=== PATIENT | female | born 1970 | race Two or more races ===

== ENCOUNTER → 2018-07-03 | Outpatient (CLI) | payer OTHER ==
[2018-07-03 10:37] LABS: HEMATOCRIT 38.6 % (36.0-47.0); HEMOGLOBIN 12.5 g/dl (12.0-15.5); MEAN CORPUSCULAR HEMOGLOBIN 28.7 pg (27.0-33.0); MEAN CORPUSCULAR HGB CONC 32.4 g/dl (32.0-36.5); MEAN CORPUSCULAR VOLUME 88.5 fl (80.0-96.0); PLATELET COUNT, AUTOMATED 371 10^3/uL (150-450); RED BLOOD COUNT 4.36 10^6/uL (4.00-5.40); RED CELL DISTRIBUTION WIDTH 15.2 % (11.5-14.5); WHITE BLOOD COUNT 6.6 10^3/uL (4.0-10.0)
[2018-07-03 11:21] LABS: ESTIMATED AVERAGE GLUCOSE 126 MG/DL (60-110)
[2018-07-03 11:33] LABS: ALBUMIN 3.6 GM/DL (3.2-5.2); ALBUMIN/GLOBULIN RATIO 1.06 (1.00-1.93); ALKALINE PHOSPHATASE 79 U/L (45-117); ALT/SGPT 19 U/L (12-78); ANION GAP 6 MEQ/L (8-16); AST/SGOT 13 U/L (7-37); BILIRUBIN,TOTAL 0.4 MG/DL (0.2-1.0); BLOOD UREA NITROGEN 13 MG/DL (7-18); CARBON DIOXIDE LEVEL 28 MEQ/L (21-32); CHLORIDE LEVEL 103 MEQ/L (98-107); CHOLESTEROL LEVEL 214 MG/DL (<200); CHOLESTEROL RISK RATIO 5.631 (<5); CREATININE FOR GFR 0.72 MG/DL (0.55-1.30); GLOMERULAR FILTRATION RATE > 60.0 (>58); GLUCOSE, FASTING 97 MG/DL (70-100); HDL CHOLESTEROL 38 MG/DL (>40); LDL CHOLESTEROL 143 MG/DL (<100); NON-HDL-C 176 MG/DL; POTASSIUM SERUM 4.3 MEQ/L (3.5-5.1); SODIUM LEVEL 137 MEQ/L (136-145); THYROID STIMULATING HORMONE 0.973 uIU/ML (0.358-3.740); TOTAL 25(OH) VITAMIN D 11.5 NG/ML (30.0-100.0); TRIGLYCERIDES LEVEL 165 MG/DL (<150)
== END ==
LOC: M LAB 09:01
DX: R53.83 Other fatigue (principal); I10 Essential (primary) hypertension
CPT/HCPCS: 71046

== ENCOUNTER → 2018-07-04 | Outpatient (CLI) | payer OTHER | LOC: M RAD 14:53 | DX: Z12.31 Encounter for screening mammogram for malignant neoplasm of breast (principal) | CPT/HCPCS: 77067 ==

== ENCOUNTER → 2019-10-07 | Outpatient (CLI) | payer OTHER ==
[2019-10-07 09:14] LABS: HEMATOCRIT 40.6 % (36.0-47.0); HEMOGLOBIN 12.7 g/dl (12.0-15.5); MEAN CORPUSCULAR HEMOGLOBIN 28.3 pg (27.0-33.0); MEAN CORPUSCULAR HGB CONC 31.3 g/dl (32.0-36.5); MEAN CORPUSCULAR VOLUME 90.4 fl (80.0-96.0); PLATELET COUNT, AUTOMATED 347 10^3/uL (150-450); RED BLOOD COUNT 4.49 10^6/uL (4.00-5.40); WHITE BLOOD COUNT 7.4 10^3/uL (4.0-10.0)
[2019-10-07 09:40] LABS: HEMOGLOBIN A1c 5.7 %
[2019-10-07 09:50] LABS: ALBUMIN 3.6 GM/DL (3.2-5.2); ALT/SGPT 16 U/L (12-78); BILIRUBIN,TOTAL 0.2 MG/DL (0.2-1.0); BLOOD UREA NITROGEN 10 MG/DL (7-18); CALCIUM LEVEL 8.6 MG/DL (8.5-10.1); CARBON DIOXIDE LEVEL 29 MEQ/L (21-32); CHLORIDE LEVEL 105 MEQ/L (98-107); CHOLESTEROL LEVEL 218 MG/DL (<200); CHOLESTEROL RISK RATIO 4.448 (<5); CREATININE FOR GFR 0.84 MG/DL (0.55-1.30); GLOMERULAR FILTRATION RATE > 60.0 (>58); GLUCOSE, FASTING 96 MG/DL (70-100); HDL CHOLESTEROL 49 MG/DL (>40); LDL CHOLESTEROL 142 MG/DL (<100); NON-HDL-C 169 MG/DL; POTASSIUM SERUM 4.5 MEQ/L (3.5-5.1); SODIUM LEVEL 140 MEQ/L (136-145); TRIGLYCERIDES LEVEL 137 MG/DL (<150)
[2019-10-07 10:33] LABS: TOTAL 25(OH) VITAMIN D 56.5 NG/ML (30.0-100.0)
== END ==
LOC: M LAB 08:30
PROVIDERS: ATTEND Family Medicine
DX: I10 Essential (primary) hypertension (principal); R53.83 Other fatigue

== ENCOUNTER → 2020-10-16 | Outpatient (CLI) | payer OTHER ==
[2020-10-16 10:28] LABS: HEMATOCRIT 42.5 % (36.0-47.0); HEMOGLOBIN 13.3 g/dl (12.0-15.5); MEAN CORPUSCULAR HEMOGLOBIN 28.1 pg (27.0-33.0); MEAN CORPUSCULAR HGB CONC 31.3 g/dl (32.0-36.5); MEAN CORPUSCULAR VOLUME 89.7 fl (80.0-96.0); PLATELET COUNT, AUTOMATED 406 10^3/uL (150-450); RED BLOOD COUNT 4.74 10^6/uL (4.00-5.40); WHITE BLOOD COUNT 9.5 10^3/uL (4.0-10.0)
[2020-10-16 10:37] LABS: HEMOGLOBIN A1c 6.1 %
[2020-10-16 10:57] LABS: ALBUMIN 3.9 GM/DL (3.2-5.2); BILIRUBIN,TOTAL 0.5 MG/DL (0.2-1.0); CALCIUM LEVEL 9.3 MG/DL (8.5-10.1); CHOLESTEROL RISK RATIO 5.434 (<5); CREATININE FOR GFR 1.09 MG/DL (0.55-1.30); GLOMERULAR FILTRATION RATE 56.8 (>58); PERCENT SATURATION 27.9 % (13.2-45.0); POTASSIUM SERUM 4.2 MEQ/L (3.5-5.1); THYROID STIMULATING HORMONE 2.11 uIU/ML (0.358-3.740); TOTAL PROTEIN 7.7 GM/DL (6.4-8.2)
[2020-10-17 11:02] LABS: TOTAL 25(OH) VITAMIN D 72.1 NG/ML (30.0-100.0)
== END ==
LOC: M LAB 09:48
PROVIDERS: ATTEND Family Medicine
DX: I10 Essential (primary) hypertension (principal); E11.9 Type 2 diabetes mellitus without complications; R53.83 Other fatigue; E03.9 Hypothyroidism, unspecified

== ENCOUNTER → 2021-02-23 | Outpatient (CLI) | payer OTHER ==
--- NOTE | 2021-02-23 11:46 | REP ---
INDICATION: LLQ MASS *LABS 2ND* COMPARISON: None. TECHNIQUE: Transabdominal pelvic ultrasound followed by transvaginal examination for better evaluation of the endometrium and adnexa. FINDINGS: Examination is limited due to body habitus and associated technical factors. Bladder is unremarkable and measures 6.7 x 5.0 x 5.4 cm. Heterogeneous uterus measures 8.8 x 4.6 x 5.2 cm. The endometrial complex is not discernible. No obvious focal uterine abnormality is identified. Bilateral ovaries are not visualized. No pelvic fluid or adnexal mass lesion noted. IMPRESSION: Limited examination. Ovaries not visualized. No obvious abnormality. <Electronically signed by Julian Mueller > 02/23/21 [id number]
[2021-02-23 12:00] LABS: HEMATOCRIT 36.7 % (36.0-47.0); MEAN CORPUSCULAR HGB CONC 32.7 g/dl (32.0-36.5); MEAN CORPUSCULAR VOLUME 88.6 fl (80.0-96.0); PLATELET COUNT, AUTOMATED 338 10^3/uL (150-450); RED BLOOD COUNT 4.14 10^6/uL (4.00-5.40)
[2021-02-23 12:20] LABS: HEMOGLOBIN A1c 6.2 %
[2021-02-23 12:36] LABS: ALBUMIN 3.4 GM/DL (3.2-5.2); ALT/SGPT 22 U/L (12-78); BILIRUBIN,TOTAL 0.3 MG/DL (0.2-1.0); BLOOD UREA NITROGEN 14 MG/DL (7-18); CARBON DIOXIDE LEVEL 29 MEQ/L (21-32); CHLORIDE LEVEL 99 MEQ/L (98-107); CHOLESTEROL LEVEL 198 MG/DL (<200); CREATININE FOR GFR 0.88 MG/DL (0.55-1.30); GLOMERULAR FILTRATION RATE > 60.0 (>58); GLUCOSE, FASTING 108 MG/DL (70-100); HDL CHOLESTEROL 44 MG/DL (>40); LDL CHOLESTEROL 105 MG/DL (<100); NON-HDL-C 154 MG/DL; POTASSIUM SERUM 3.9 MEQ/L (3.5-5.1); SODIUM LEVEL 136 MEQ/L (136-145); THYROID STIMULATING HORMONE < 0.005 uIU/ML (0.358-3.740); TOTAL PROTEIN 6.8 GM/DL (6.4-8.2); TRIGLYCERIDES LEVEL 244 MG/DL (<150)
== END ==
LOC: M RAD 10:47
PROVIDERS: ATTEND Family Medicine
DX: R19.04 Left lower quadrant abdominal swelling, mass and lump (principal)

== ENCOUNTER → 2021-06-12 | Outpatient (CLI) | payer OTHER ==
--- NOTE | 2021-06-12 19:59 | REP ---
INDICATION: COPD COMPARISON: 07/03/2018 TECHNIQUE: PA and lateral. FINDINGS: The mediastinum and cardiac silhouette are normal. The lung tarango are clear and without acute consolidation, effusion, or pneumothorax. The skeletal structures are intact and normal. IMPRESSION: No acute cardiopulmonary process. <Electronically signed by Julian Mueller > 06/12/211954
== END ==
LOC: M RAD 14:34
PROVIDERS: ATTEND Family Medicine
DX: J44.9 Chronic obstructive pulmonary disease, unspecified (principal)

== ENCOUNTER → 2021-06-27 | Outpatient (CLI) | payer OTHER ==
--- NOTE | 2021-06-27 15:17 | REP ---
INDICATION: PAIN/SWELLING RT CALF. COMPARISON: None. TECHNIQUE: Multiple ultrasonographic images of the deep venous structures of the right lower extremity were obtained from the inguinal ligament to the ankle. Venous compression techniques, color doppler imaging, and augmentation techniques were also obtained where appropriate. As per the ACR guidelines the anterior tibial vein can not be effectively evaluated. Only compression techniques in the calf on the peroneal and posterior tibial veins was attempted/performed. FINDINGS: There is no abnormal echogenic material seen within any of the visualized deep venous structures that would suggest acute thrombosis. Coaptation is unremarkable throughout. Doppler interrogation shows an expected response to respiratory variability and augmentation in the thigh. Compression techniques in the calf were unobtainable. The color flow images show what appears to be a normal vascular pattern throughout the thigh. IMPRESSION: There is no ultrasonographic evidence of deep venous thrombosis involving any of the visualized deep venous structures of the right lower extremity as described above. Due to technical parameters calf vein DVT can not be ruled out. <Electronically signed by Emmanuel Roque > 06/27/21 [id number]
== END ==
LOC: M RAD 14:31
PROVIDERS: ATTEND Family Medicine
DX: R60.9 Edema, unspecified (principal)

== ENCOUNTER 2021-07-24 16:04 | Emergency (ER) | payer OTHER ==
[~2021-07-24] VITALS: Ht 162.6 cm; Wt 107.4 kg
[2021-07-25 03:30] VITALS: BP 133/65
== END 2021-07-25 05:55 | disposition home or self-care (01) ==
LOC: M ED 16:04
DX: M17.11 Unilateral primary osteoarthritis, right knee (principal)

== ENCOUNTER → 2021-09-29 | Outpatient (CLI) | payer OTHER ==
[2021-09-29 14:39] LABS: HEMATOCRIT 41.5 % (36.0-47.0); HEMOGLOBIN 13.4 g/dl (12.0-15.5); MEAN CORPUSCULAR HEMOGLOBIN 28.5 pg (27.0-33.0); MEAN CORPUSCULAR HGB CONC 32.3 g/dl (32.0-36.5); MEAN CORPUSCULAR VOLUME 88.1 fl (80.0-96.0); PLATELET COUNT, AUTOMATED 391 10^3/uL (150-450); RED BLOOD COUNT 4.71 10^6/uL (4.00-5.40); WHITE BLOOD COUNT 7.4 10^3/uL (4.0-10.0)
[2021-09-29 14:56] LABS: ERYTHROCYTE SEDIMENTATION RATE 7 mm/hr (0-30)
[2021-09-29 15:13] LABS: ALBUMIN 4.3 GM/DL (3.2-5.2); ALT/SGPT 29 U/L (12-78); BILIRUBIN,TOTAL 0.5 MG/DL (0.2-1.0); BLOOD UREA NITROGEN 14 MG/DL (7-18); CARBON DIOXIDE LEVEL 33 MEQ/L (21-32); CHLORIDE LEVEL 102 MEQ/L (98-107); CHOLESTEROL LEVEL 231 MG/DL (<200); CHOLESTEROL RISK RATIO 4.358 (<5); CREATININE FOR GFR 0.94 MG/DL (0.55-1.30); GLOMERULAR FILTRATION RATE > 60.0 (>51); GLUCOSE, FASTING 105 MG/DL (70-100); HDL CHOLESTEROL 53 MG/DL (>40); LDL CHOLESTEROL 149 MG/DL (<100); NON-HDL-C 178 MG/DL; RHEUMATOID FACTOR QUANT < 10.0 IU/ML (<15.0); SODIUM LEVEL 139 MEQ/L (136-145); THYROID STIMULATING HORMONE 0.965 uIU/ML (0.358-3.740); TOTAL PROTEIN 7.8 GM/DL (6.4-8.2); TRIGLYCERIDES LEVEL 144 MG/DL (<150); URIC ACID 6.1 MG/DL (2.6-6.0)
[2021-09-29 15:15] LABS: HEMOGLOBIN A1c 5.8 %
[2021-10-02 16:09] LABS: Lyme Disease IgG/IgM Antibodie <0.91 ISR (0.00-0.90); Lyme Disease IgM Ab Quantitati <0.80 index (0.00-0.79)
== END ==
LOC: M LAB 14:19
PROVIDERS: ATTEND Family Medicine
DX: I10 Essential (primary) hypertension (principal); R53.83 Other fatigue

== ENCOUNTER → 2022-01-05 | Outpatient (CLI) | payer OTHER ==
[2022-01-05 14:39] LABS: BLOOD UREA NITROGEN 17 MG/DL (7-18); CALCIUM LEVEL 9.5 MG/DL (8.5-10.1); CARBON DIOXIDE LEVEL 28 MEQ/L (21-32); CHLORIDE LEVEL 105 MEQ/L (98-107); CREATININE FOR GFR 0.91 MG/DL (0.55-1.30); GLOMERULAR FILTRATION RATE > 60.0 (>51); GLUCOSE, FASTING 111 MG/DL (70-100); POTASSIUM SERUM 3.7 MEQ/L (3.5-5.1); SODIUM LEVEL 138 MEQ/L (136-145)
== END ==
LOC: M EKG 13:12
PROVIDERS: ATTEND Orthopaedic Surgery
DX: R00.0 Tachycardia, unspecified (principal); M23.203 Derangement of unspecified medial meniscus due to old tear or injury, right knee; M25.562 Pain in left knee

== ENCOUNTER 2022-02-19 11:43 | Emergency (ER) | payer OTHER ==
[~2022-02-19] VITALS: Ht 160 cm; Wt 108.0 kg
[2022-02-19 11:43] VITALS: BP 165/92
== END 2022-02-19 17:57 | disposition home or self-care (01) ==
LOC: M ED 11:43
DX: M71.22 Synovial cyst of popliteal space [Baker], left knee (principal); I10 Essential (primary) hypertension; E78.5 Hyperlipidemia, unspecified; E03.9 Hypothyroidism, unspecified

== ENCOUNTER 2022-03-04 23:07 | Emergency (ER) | payer OTHER ==
[~2022-03-04] VITALS: Ht 160 cm; Wt 109.1 kg
[2022-03-04] MEDS ORDERED: LEVO88TA3 (23:27)
[2022-03-04] MEDS ORDERED: HYDR1CAP25 (23:27)
[2022-03-04] MEDS ORDERED: ALLO300T2 (23:27)
[2022-03-04] MEDS ORDERED: FLUO20CA22 (23:27)
[2022-03-04] MEDS ORDERED: CAPT125TA (23:27)
[2022-03-04] MEDS ORDERED: POTA1TAB21 (23:27)
[2022-03-04] MEDS ORDERED: FURO40TA2 (23:27)
[2022-03-04] MEDS ORDERED: SIMV20TA22 (23:27)
[2022-03-05 02:22] LABS: INR 0.86; PROTHROMBIN TIME 12.1 SECONDS (12.7-14.5)
[2022-03-05 02:29] LABS: BLOOD UREA NITROGEN 11 MG/DL (7-18); CALCIUM LEVEL 9.6 MG/DL (8.5-10.1); CARBON DIOXIDE LEVEL 31 MEQ/L (21-32); CHLORIDE LEVEL 107 MEQ/L (98-107); CREATININE FOR GFR 0.84 MG/DL (0.55-1.30); GLOMERULAR FILTRATION RATE > 60.0 (>51); GLUCOSE, FASTING 107 MG/DL (70-100); NT-PRO BNP 39 PG/ML (<125); POTASSIUM SERUM 4.2 MEQ/L (3.5-5.1); SODIUM LEVEL 143 MEQ/L (136-145)
[2022-03-05] MEDS ORDERED: CAPTOpril 12.5 MG TAB PO ONE (08:30)
[2022-03-05] MEDS ORDERED: FUROSEMIDE 40 MG TAB PO ONE (08:30)
[2022-03-05 09:22] VITALS: BP 154/78
[2022-03-05 09:26] VITALS: BP 160/76
[2022-03-05 09:39] LABS: BASO # 0.1 10^3/uL (0.0-0.2); BASO % 0.6 % (0.0-1.0); EOS # 0.4 10^3/uL (0.0-0.5); EOS % 5.3 % (0.0-3.0); HEMATOCRIT 38.9 % (36.0-47.0); HEMOGLOBIN 12.1 g/dl (12.0-15.5); LYMPH # 2.2 10^3/uL (1.5-5.0); MEAN CORPUSCULAR HEMOGLOBIN 28.1 pg (27.0-33.0); MEAN CORPUSCULAR HGB CONC 31.1 g/dl (32.0-36.5); MEAN CORPUSCULAR VOLUME 90.5 fl (80.0-96.0); MONO # 0.5 10^3/uL (0.0-0.8); MONO % 6.4 % (2.0-8.0); NEUTROPHILS # 4.7 10^3/uL (1.5-8.5); NEUTROPHILS % 59.4 % (36.0-66.0); PLATELET COUNT, AUTOMATED 395 10^3/uL (150-450); WHITE BLOOD COUNT 7.9 10^3/uL (4.0-10.0)
[2022-03-05 09:52] LABS: ALBUMIN 3.8 GM/DL (3.2-5.2); ALT/SGPT 26 U/L (12-78); BILIRUBIN,DIRECT < 0.1 MG/DL (0.0-0.2); BILIRUBIN,TOTAL 0.3 MG/DL (0.2-1.0); BLOOD UREA NITROGEN 13 MG/DL (7-18); CALCIUM LEVEL 9.5 MG/DL (8.5-10.1); CARBON DIOXIDE LEVEL 29 MEQ/L (21-32); CHLORIDE LEVEL 107 MEQ/L (98-107); CREATININE FOR GFR 0.94 MG/DL (0.55-1.30); GLOMERULAR FILTRATION RATE > 60.0 (>51); GLUCOSE, FASTING 152 MG/DL (70-100); LIPASE 150 U/L (73-393); NT-PRO BNP 29 PG/ML (<125); SODIUM LEVEL 140 MEQ/L (136-145); TOTAL PROTEIN 6.7 GM/DL (6.4-8.2)
== END 2022-03-05 10:55 | disposition home or self-care (01) ==
LOC: M ED 23:07
DX: M71.21 Synovial cyst of popliteal space [Baker], right knee (principal); M71.22 Synovial cyst of popliteal space [Baker], left knee; R60.9 Edema, unspecified; I10 Essential (primary) hypertension; E03.9 Hypothyroidism, unspecified; E78.5 Hyperlipidemia, unspecified; M10.9 Gout, unspecified; M19.90 Unspecified osteoarthritis, unspecified site; R56.9 Unspecified convulsions; Z79.899 Other long term (current) drug therapy; Z79.890 Hormone replacement therapy

== ENCOUNTER 2022-03-09 22:12 | Emergency (ER) | payer OTHER ==
[~2022-03-09] VITALS: Ht 160 cm; Wt 110.2 kg
[2022-03-09 22:12] VITALS: BP 141/83
[~2022-03-09 22:12] MED LIST: ALLO300T2; CAPT125TA; FLUO20CA22; FURO40TA2; HYDR1CAP25; LEVO88TA3; POTA1TAB21; SIMV20TA22
[2022-03-10] MEDS ORDERED: TRAM50TA2 PO (02:36)
[2022-03-10] MEDS: traMADol 50 MG TAB PO ONE (02:42)
== END 2022-03-10 02:48 | disposition home or self-care (01) ==
LOC: M ED 22:12
DX: M19.90 Unspecified osteoarthritis, unspecified site (principal); M71.21 Synovial cyst of popliteal space [Baker], right knee; I10 Essential (primary) hypertension; E78.5 Hyperlipidemia, unspecified; E07.9 Disorder of thyroid, unspecified; F32.A Depression, unspecified; Z79.899 Other long term (current) drug therapy; Z79.890 Hormone replacement therapy; Z98.890 Other specified postprocedural states

== ENCOUNTER 2022-05-27 22:47 | Inpatient (IN) | payer OTHER ==
[~2022-05-27] VITALS: Ht 162.6 cm; Wt 108.7 kg
[~2022-05-27 22:47] MED LIST changes: -ALLO300T2; +ALLO300T2 PO; -CAPT125TA; +CAPT125TA PO; -FLUO20CA22; +FLUO20CA22 PO; -FURO40TA2; +FURO40TA2 PO; -HYDR1CAP25; +HYDR1CAP25 PO; -POTA1TAB21; +POTA1TAB21 PO; -SIMV20TA22; +SIMV20TA22 PO; +TRAM50TA2 PO
[2022-05-28 00:33] LABS: HEMATOCRIT 40.7 % (36.0-47.0); HEMOGLOBIN 12.5 g/dl (12.0-15.5); MEAN CORPUSCULAR HEMOGLOBIN 27.4 pg (27.0-33.0); MEAN CORPUSCULAR HGB CONC 30.7 g/dl (32.0-36.5); MEAN CORPUSCULAR VOLUME 89.3 fl (80.0-96.0); PLATELET COUNT, AUTOMATED 341 10^3/uL (150-450); RED BLOOD COUNT 4.56 10^6/uL (4.00-5.40); WHITE BLOOD COUNT 8.1 10^3/uL (4.0-10.0)
[2022-05-28 00:57] LABS: HCG, SERUM QUALITATIVE NEGATIVE (NEGATIVE)
[2022-05-28 01:01] LABS: AMPHETAMINES LEVEL URINE NEGATIVE (NEGATIVE); BARBITURATES URINE NEGATIVE (NEGATIVE); BENZODIAZEPINES URINE NEGATIVE (NEGATIVE); CANNABINOIDS URINE NEGATIVE (NEGATIVE); COCAINE METABOLITE URINE NEGATIVE (NEGATIVE); METHADONE URINE NEGATIVE (NEGATIVE); OPIATES URINE NEGATIVE (NEGATIVE); PHENCYCLIDINE URINE NEGATIVE (NEGATIVE)
[2022-05-28 01:03] LABS: RSV AMPLIFICATION NEGATIVE (NEGATIVE)
[2022-05-28 02:09] LABS: ACETAMINOPHEN LEVEL < 2.0 UG/ML (10.0-30.0); ALBUMIN 3.5 GM/DL (3.2-5.2); ALT/SGPT 20 U/L (12-78); BILIRUBIN,DIRECT 0.1 MG/DL (0.0-0.2); BILIRUBIN,TOTAL 0.2 MG/DL (0.2-1.0); BLOOD UREA NITROGEN 10 MG/DL (7-18); CALCIUM LEVEL 9.4 MG/DL (8.5-10.1); CARBON DIOXIDE LEVEL 28 MEQ/L (21-32); CHLORIDE LEVEL 109 MEQ/L (98-107); ETHYL ALCOHOL (ETHANOL) < 0.003 % (0.000-0.010); GLOMERULAR FILTRATION RATE > 60.0 (>51); GLUCOSE, FASTING 105 MG/DL (70-100); POTASSIUM SERUM 4.3 MEQ/L (3.5-5.1); SALICYLATE LEVEL < 1.7 MG/DL (5.0-30.0); SODIUM LEVEL 141 MEQ/L (136-145); THYROID STIMULATING HORMONE < 0.005 uIU/ML (0.358-3.740); TOTAL PROTEIN 6.4 GM/DL (6.4-8.2)
[2022-05-28] MEDS ORDERED: amLODIPine 5 MG TAB PO ONE (02:55)
[2022-05-28] MEDS ORDERED: LEVO150T7 PO (04:14)
[2022-05-28] MEDS ORDERED: ERGO500029 PO (04:14)
[2022-05-28] MEDS ORDERED: IBUP200T46 PO (04:14)
[2022-05-28] MEDS ORDERED: HOME MED LIST COMPLETE! XX SCH (04:15)
[2022-05-28] MEDS ORDERED: LEVOTHYROXINE 150MCG TABLET (0.15MG) PO SCH (06:00)
[2022-05-28] MEDS ORDERED: SIMVASTATIN 20 MG TAB PO SCH (09:00)
[2022-05-28] MEDS ORDERED: allopurinoL 300 MG TAB PO SCH (09:00)
[2022-05-28] MEDS ORDERED: FUROSEMIDE 40 MG TAB PO SCH (09:00)
[2022-05-28] MEDS ORDERED: FLUoxetine 20MG CAP PO SCH (09:00)
[2022-05-28] MEDS: CAPTOpril 12.5 MG TAB PO SCH ×2 (09:07→21:00)
[2022-05-29 00:35] VITALS: BP 132/72
[2022-05-29] MEDS ORDERED: ACETAMINOPHEN TAB 650MG DOSE (2X325MG) PO PRN (02:00)
[2022-05-29] MEDS ORDERED: MOM 30ML SUSPENSION UDC PO PRN (02:00)
[2022-05-29] MEDS ORDERED: MAALOX 30 ML SUSP *UDC PO PRN (02:00)
[2022-05-29] MEDS ORDERED: LEVOTHYROXINE 150MCG TABLET (0.15MG) PO SCH (06:00)
[2022-05-29] MEDS ORDERED: FLUoxetine 20MG CAP PO SCH (09:00)
[2022-05-29] MEDS: FUROSEMIDE 40 MG TAB PO SCH (09:41)
[2022-05-29] MEDS: SIMVASTATIN 20 MG TAB PO SCH (09:41)
[2022-05-29] MEDS: CAPTOpril 12.5 MG TAB PO SCH ×2 (09:41→21:37)
[2022-05-29] MEDS: POTASSIUM CHLORIDE 10MEQ SR TABLET PO SCH ×3 (09:41→21:36)
[2022-05-29] MEDS: allopurinoL 300 MG TAB PO SCH (12:03)
[2022-05-29 12:05] LABS: FREE T4 1.42 NG/DL (0.76-1.46)
[2022-05-29 18:38] VITALS: BP 149/90
[2022-05-29] MEDS: traZODone 50 MG TAB PO PRN (21:36)
[2022-05-30] MEDS: LEVOTHYROXINE 125MCG TABLET (0.125MG) PO SCH (05:54)
[2022-05-30 06:57] VITALS: BP 133/74
[2022-05-30] MEDS ORDERED: FLUBLOK(EGG FREE)(QUAD)INFLUENZA VACC 0.5ML SYRINGE 18YRS & OLDER IM.IMMUN ONE (09:00)
[2022-05-30] MEDS: CAPTOpril 12.5 MG TAB PO SCH ×2 (09:59→20:47)
[2022-05-30] MEDS: SIMVASTATIN 20 MG TAB PO SCH (09:59)
[2022-05-30] MEDS: FUROSEMIDE 40 MG TAB PO SCH (09:59)
[2022-05-30] MEDS: POTASSIUM CHLORIDE 10MEQ SR TABLET PO SCH ×3 (09:59→20:47)
[2022-05-30] MEDS: FLUoxetine 20MG CAP PO SCH (10:00)
[2022-05-30] MEDS: allopurinoL 300 MG TAB PO SCH (10:39)
[2022-05-30 18:18] VITALS: BP 141/79
[2022-05-30] MEDS: traZODone 50 MG TAB PO PRN (20:47)
[2022-05-31] MEDS: LEVOTHYROXINE 125MCG TABLET (0.125MG) PO SCH (05:53)
[2022-05-31 06:38] VITALS: BP 137/86
[2022-05-31] MEDS: SIMVASTATIN 20 MG TAB PO SCH (09:53)
[2022-05-31] MEDS: allopurinoL 300 MG TAB PO SCH (09:53)
[2022-05-31] MEDS: POTASSIUM CHLORIDE 10MEQ SR TABLET PO SCH ×3 (09:54→20:36)
[2022-05-31] MEDS: FUROSEMIDE 40 MG TAB PO SCH (09:54)
[2022-05-31] MEDS: FLUoxetine 20MG CAP PO SCH (09:54)
[2022-05-31] MEDS: CAPTOpril 12.5 MG TAB PO SCH ×2 (09:54→20:36)
[2022-05-31 18:03] VITALS: BP 136/84
[2022-05-31 18:11] VITALS: BP 136/84
[2022-05-31] MEDS: traZODone 50 MG TAB PO PRN (20:36)
[2022-06-01] MEDS: LEVOTHYROXINE 125MCG TABLET (0.125MG) PO SCH (05:56)
[2022-06-01 06:21] VITALS: BP 141/82
[2022-06-01] MEDS: allopurinoL 300 MG TAB PO SCH (09:09)
[2022-06-01] MEDS: FLUoxetine 20MG CAP PO SCH (09:09)
[2022-06-01] MEDS: POTASSIUM CHLORIDE 10MEQ SR TABLET PO SCH ×3 (09:09→21:18)
[2022-06-01] MEDS: SIMVASTATIN 20 MG TAB PO SCH (09:09)
[2022-06-01] MEDS: FUROSEMIDE 40 MG TAB PO SCH (09:10)
[2022-06-01] MEDS: CAPTOpril 12.5 MG TAB PO SCH ×2 (09:10→21:21)
[2022-06-01 18:07] VITALS: BP 128/70
[2022-06-01] MEDS: traZODone 50 MG TAB PO PRN (21:18)
[2022-06-02] MEDS: LEVOTHYROXINE 125MCG TABLET (0.125MG) PO SCH (05:54)
[2022-06-02] MEDS: SIMVASTATIN 20 MG TAB PO SCH (08:58)
[2022-06-02] MEDS: FLUoxetine 20MG CAP PO SCH (08:58)
[2022-06-02] MEDS: POTASSIUM CHLORIDE 10MEQ SR TABLET PO SCH ×3 (08:58→20:27)
[2022-06-02] MEDS: FUROSEMIDE 40 MG TAB PO SCH (08:59)
[2022-06-02] MEDS: allopurinoL 300 MG TAB PO SCH (08:59)
[2022-06-02] MEDS: CAPTOpril 12.5 MG TAB PO SCH ×2 (08:59→20:34)
[2022-06-02] MEDS ORDERED: VITAMIN D 50,000 UNITS CAPSULE (ERGOCALCIFEROL 1.25MG) PO SCH (09:00)
[2022-06-02 18:18] VITALS: BP 145/84
[2022-06-02] MEDS: PILL CUTTER 1 EACH XX PRN (20:27)
[2022-06-02] MEDS: traZODone 50 MG TAB PO PRN (20:28)
[2022-06-02] MEDS: IBUPROFEN 600MG TAB PO PRN (20:29)
[2022-06-03] MEDS: LEVOTHYROXINE 125MCG TABLET (0.125MG) PO SCH (05:45)
[2022-06-03 07:02] VITALS: BP 109/53
[2022-06-03] MEDS: allopurinoL 300 MG TAB PO SCH (08:03)
[2022-06-03] MEDS: CAPTOpril 12.5 MG TAB PO SCH ×2 (08:03→20:54)
[2022-06-03] MEDS: FUROSEMIDE 40 MG TAB PO SCH (08:03)
[2022-06-03] MEDS: SIMVASTATIN 20 MG TAB PO SCH (08:03)
[2022-06-03] MEDS: IBUPROFEN 600MG TAB PO PRN (08:04)
[2022-06-03] MEDS: FLUoxetine 20MG CAP PO SCH (08:04)
[2022-06-03] MEDS: POTASSIUM CHLORIDE 10MEQ SR TABLET PO SCH ×3 (08:06→20:54)
[2022-06-03 18:00] VITALS: BP 158/81
[2022-06-03] MEDS: traZODone 50 MG TAB PO PRN (20:54)
[2022-06-04] MEDS: LEVOTHYROXINE 125MCG TABLET (0.125MG) PO SCH (05:53)
[2022-06-04 07:07] VITALS: BP 134/63
[2022-06-04] MEDS: allopurinoL 300 MG TAB PO SCH (08:38)
[2022-06-04] MEDS: CAPTOpril 12.5 MG TAB PO SCH ×2 (08:38→21:45)
[2022-06-04] MEDS: FUROSEMIDE 40 MG TAB PO SCH (08:39)
[2022-06-04] MEDS: POTASSIUM CHLORIDE 10MEQ SR TABLET PO SCH ×3 (08:39→21:45)
[2022-06-04] MEDS: SIMVASTATIN 20 MG TAB PO SCH (08:39)
[2022-06-04] MEDS: FLUoxetine 20MG CAP PO SCH (08:39)
[2022-06-04] MEDS: IBUPROFEN 600MG TAB PO PRN (08:39)
[2022-06-04 16:20] VITALS: BP 138/82
[2022-06-04] MEDS: traZODone 50 MG TAB PO PRN (21:46)
[2022-06-05] MEDS: LEVOTHYROXINE 125MCG TABLET (0.125MG) PO SCH (05:40)
[2022-06-05 06:40] VITALS: BP 127/59
[2022-06-05 08:52] VITALS: BP 138/88
[2022-06-05] MEDS: FLUoxetine 20MG CAP PO SCH (08:55)
[2022-06-05] MEDS: SIMVASTATIN 20 MG TAB PO SCH (08:55)
[2022-06-05] MEDS: allopurinoL 300 MG TAB PO SCH (08:55)
[2022-06-05] MEDS: FUROSEMIDE 40 MG TAB PO SCH (08:55)
[2022-06-05] MEDS: POTASSIUM CHLORIDE 10MEQ SR TABLET PO SCH ×3 (08:56→21:06)
[2022-06-05] MEDS: CAPTOpril 12.5 MG TAB PO SCH ×2 (08:56→21:07)
[2022-06-05 16:04] VITALS: BP 119/60
[2022-06-05] MEDS: PILL CUTTER 1 EACH XX PRN (21:06)
[2022-06-05] MEDS: traZODone 50 MG TAB PO PRN (21:07)
[2022-06-06] MEDS: LEVOTHYROXINE 125MCG TABLET (0.125MG) PO SCH (05:52)
[2022-06-06 06:54] VITALS: BP 119/55
[2022-06-06] MEDS: allopurinoL 300 MG TAB PO SCH (09:22)
[2022-06-06] MEDS: CAPTOpril 12.5 MG TAB PO SCH ×2 (09:22→21:22)
[2022-06-06] MEDS: FLUoxetine 20MG CAP PO SCH (09:23)
[2022-06-06] MEDS: SIMVASTATIN 20 MG TAB PO SCH (09:23)
[2022-06-06] MEDS: POTASSIUM CHLORIDE 10MEQ SR TABLET PO SCH ×3 (09:23→21:21)
[2022-06-06] MEDS: FUROSEMIDE 40 MG TAB PO SCH (09:23)
[2022-06-06] MEDS: IBUPROFEN 600MG TAB PO PRN ×2 (09:24→21:21)
[2022-06-06 16:37] VITALS: BP 128/60
[2022-06-06] MEDS: PILL CUTTER 1 EACH XX PRN (21:20)
[2022-06-06] MEDS: traZODone 50 MG TAB PO PRN (21:21)
[2022-06-07] MEDS: LEVOTHYROXINE 125MCG TABLET (0.125MG) PO SCH (05:40)
[2022-06-07 06:40] VITALS: BP 127/59
[2022-06-07] MEDS: allopurinoL 300 MG TAB PO SCH (08:26)
[2022-06-07] MEDS: POTASSIUM CHLORIDE 10MEQ SR TABLET PO SCH (08:26)
[2022-06-07] MEDS: FUROSEMIDE 40 MG TAB PO SCH (08:26)
[2022-06-07] MEDS: FLUoxetine 20MG CAP PO SCH (08:26)
[2022-06-07 08:27] VITALS: BP 138/60
[2022-06-07] MEDS: CAPTOpril 12.5 MG TAB PO SCH (08:27)
[2022-06-07] MEDS: SIMVASTATIN 20 MG TAB PO SCH (08:27)
[2022-06-07] MEDS ORDERED: FURO40TA2 PO (09:32)
[2022-06-07] MEDS ORDERED: ALLO300T2 PO (09:32)
[2022-06-07] MEDS ORDERED: HYDR1CAP25 PO (09:32)
[2022-06-07] MEDS ORDERED: CAPT125TA PO (09:32)
[2022-06-07] MEDS ORDERED: SIMV20TA22 PO (09:32)
[2022-06-07] MEDS ORDERED: FLUO40CA PO (09:32)
[2022-06-07] MEDS ORDERED: ERGO500029 PO (09:32)
[2022-06-07] MEDS ORDERED: LEVO125T4 PO (09:32)
[2022-06-07] MEDS ORDERED: TRAZ-252 PO (09:32)
[2022-06-07] MEDS ORDERED: POTA-136 PO (09:32)
== END 2022-06-07 12:52 | disposition home or self-care (01) | DRG 751 ==
LOC: M ED 22:47 → M ED INP 05-29 01:58 → M ED 05-29 02:20 → M PSY 05-29 02:24
PROVIDERS: ADMIT Psychiatry & Neurology Psychiatry; ATTEND Psychiatry & Neurology Psychiatry
DX: F32.0 Major depressive disorder, single episode, mild (principal); I10 Essential (primary) hypertension; R45.851 Suicidal ideations; E78.5 Hyperlipidemia, unspecified; E03.9 Hypothyroidism, unspecified; M10.9 Gout, unspecified; Z59.02 Unsheltered homelessness; Z56.0 Unemployment, unspecified; Z79.899 Other long term (current) drug therapy; Z79.890 Hormone replacement therapy; E05.90 Thyrotoxicosis, unspecified without thyrotoxic crisis or storm; T38.1X5A Adverse effect of thyroid hormones and substitutes, initial encounter

== ENCOUNTER → 2022-11-01 | Outpatient (CLI) | payer OTHER ==
[~2022-11-01] MED LIST changes: +ERGO500029 PO; +FLUO40CA PO; +IBUP200T46 PO; +LEVO125T4 PO; +LEVO150T7 PO; +POTA-136 PO; +TRAZ-252 PO
[2022-11-01 11:37] LABS: HEMATOCRIT 39.8 % (36.0-47.0); MEAN CORPUSCULAR HEMOGLOBIN 29.4 pg (27.0-33.0); MEAN CORPUSCULAR HGB CONC 32.7 g/dl (32.0-36.5); PLATELET COUNT, AUTOMATED 341 10^3/uL (150-450); RED BLOOD COUNT 4.42 10^6/uL (4.00-5.40); WHITE BLOOD COUNT 7.8 10^3/uL (4.0-10.0)
[2022-11-01 11:59] LABS: HEMOGLOBIN A1c 5.7 % (4.0-6.0)
[2022-11-01 12:17] LABS: ALBUMIN 3.5 G/DL (3.2-5.2); ALKALINE PHOSPHATASE 125 U/L (46-116); ALT/SGPT 25 U/L (7.0-40); AST/SGOT 24 U/L (<34); BILIRUBIN,TOTAL 0.6 MG/DL (0.3-1.2); BLOOD UREA NITROGEN 16 MG/DL (9-23); CALCIUM LEVEL 9.6 MG/DL (8.5-10.1); CARBON DIOXIDE LEVEL 28 MMOL/L (20-31); CHLORIDE LEVEL 105 MMOL/L (98-107); CHOLESTEROL LEVEL 188 MG/DL (<200); CHOLESTEROL RISK RATIO 3.91 (<5); GLOMERULAR FILTRATION RATE > 60.0 (>51); GLUCOSE, FASTING 102 MG/DL (60-100); LDL CHOLESTEROL 111.8 MG/DL (<100); POTASSIUM SERUM 4.4 MMOL/L (3.5-5.1); SODIUM LEVEL 141 MMOL/L (136-145); THYROID STIMULATING HORMONE 0.008 uIU/ML (0.55-4.78); TOTAL 25(OH) VITAMIN D 67.8 NG/ML (20.0-100.0); TOTAL PROTEIN 6.7 G/DL (5.7-8.2); TRIGLYCERIDES LEVEL 141 MG/DL (<150)
== END ==
LOC: M LAB 11:20
PROVIDERS: ATTEND Family Medicine
DX: D64.9 Anemia, unspecified (principal)

== ENCOUNTER → 2023-05-03 | Outpatient (CLI) | payer OTHER | LOC: M SOG 07:52 | PROVIDERS: ATTEND Orthopaedic Surgery | DX: M25.562 Pain in left knee (principal) ==

== ENCOUNTER → 2023-08-02 | Outpatient (CLI) | payer OTHER ==
[~2023-08-02] MED LIST changes: +BUSP15TA47 PO; +LUNE2TAB28 PO
== END ==
LOC: M SOG 07:55
PROVIDERS: ATTEND Orthopaedic Surgery
DX: Z53.9 Procedure and treatment not carried out, unspecified reason (principal)

== ENCOUNTER 2023-08-13 08:02 | Day surgery (SDC) | payer OTHER ==
[~2023-08-13] VITALS: Ht 162.6 cm; Wt 105.0 kg
[~2023-08-13 08:02] MED LIST changes: +NS 1,000 ML IV ONE
[2023-08-13] MEDS ORDERED: LIDOCAINE 2% 100MG/5ML SDV (FOR ANES.) As Ordered ONE (09:25)
[2023-08-13] MEDS ORDERED: propofoL 200 MG/20 ML VIAL As Ordered ONE (09:25)
[2023-08-13] MEDS ORDERED: GLYCOPYRROLATE INJ 0.2 MG/ML 2 ML VIAL As Ordered ONE (09:45)
[2023-08-13 09:54] VITALS: TEMP 96.8
[2023-08-13 10:06] VITALS: BP 182/99; O2SAT 98
== END 2023-08-13 11:03 | disposition home or self-care (01) ==
LOC: M OPP 08:02
PROVIDERS: ATTEND Internal Medicine Gastroenterology
DX: Z12.11 Encounter for screening for malignant neoplasm of colon (principal); K57.30 Diverticulosis of large intestine without perforation or abscess without bleeding; Z79.02 Long term (current) use of antithrombotics/antiplatelets; Z79.1 Long term (current) use of non-steroidal anti-inflammatories (NSAID); Z79.890 Hormone replacement therapy; Z79.899 Other long term (current) drug therapy

== ENCOUNTER → 2024-03-03 | Outpatient (CLI) | payer OTHER ==
[~2024-03-03] MED LIST changes: +FLUO-365 PO; -FLUO20CA22 PO; -NS 1,000 ML IV ONE
[2024-03-03 15:37] LABS: HEMATOCRIT 40.9 % (36.0-47.0); HEMOGLOBIN 13.2 g/dl (12.0-15.5); MEAN CORPUSCULAR HEMOGLOBIN 29.6 pg (27.0-33.0); MEAN CORPUSCULAR HGB CONC 32.3 g/dl (32.0-36.5); MEAN CORPUSCULAR VOLUME 91.7 fl (80.0-96.0); PLATELET COUNT, AUTOMATED 366 10^3/uL (150-450); RED BLOOD COUNT 4.46 10^6/uL (4.00-5.40); WHITE BLOOD COUNT 7.2 10^3/uL (4.0-10.0)
[2024-03-03 16:41] LABS: TOTAL IRON BINDING CAPACITY 396 UG/DL (250-425)
[2024-03-03 16:42] LABS: ALBUMIN 3.9 G/DL (3.2-5.2); ALKALINE PHOSPHATASE 127 U/L (46-116); ALT/SGPT 25 U/L (7.0-40); AST/SGOT 14 U/L (<34); BILIRUBIN,TOTAL 0.4 MG/DL (0.3-1.2); BLOOD UREA NITROGEN 13 MG/DL (9-23); CARBON DIOXIDE LEVEL 26 MMOL/L (20-31); CHLORIDE LEVEL 107 MMOL/L (98-107); CHOLESTEROL LEVEL 184 MG/DL (<200); CHOLESTEROL RISK RATIO 3.51 (<5); CREATININE FOR GFR 0.73 MG/DL (0.55-1.30); GLOMERULAR FILTRATION RATE > 60.0 (>51); GLUCOSE, FASTING 102 MG/DL (60-100); HDL CHOLESTEROL 52.4 MG/DL (>40); IRON (FE) 93 UG/DL (50-170); LDL CHOLESTEROL 93.2 MG/DL (<100); NON-HDL-C 131.6 MG/DL; PERCENT SATURATION 23.5 % (13.2-45.0); POTASSIUM SERUM 4.2 MMOL/L (3.5-5.1); SODIUM LEVEL 141 MMOL/L (136-145); THYROID STIMULATING HORMONE 0.014 uIU/ML (0.55-4.78); THYROXINE (T4) 11.5 UG/DL (4.5-10.9); TOTAL 25(OH) VITAMIN D 71.5 NG/ML (20.0-100.0); TOTAL PROTEIN 6.9 G/DL (5.7-8.2); TRIGLYCERIDES LEVEL 192 MG/DL (<150)
[2024-03-03 17:05] LABS: HEMOGLOBIN A1c 5.7 % (4.0-6.0)
== END ==
LOC: M PLALAB 13:38
PROVIDERS: ATTEND Family Medicine
DX: D64.9 Anemia, unspecified (principal)

== ENCOUNTER → 2024-03-03 | Outpatient (REF) | LOC: M PLAIMG 13:34 | PROVIDERS: ATTEND Internal Medicine | DX: R52 Pain, unspecified (principal) ==

== ENCOUNTER → 2024-07-13 | Outpatient (REF) | LOC: M PLAIMG 14:27 | PROVIDERS: ATTEND Internal Medicine | DX: R52 Pain, unspecified (principal) ==

== ENCOUNTER → 2024-12-10 | Outpatient (REF) | payer OTHER ==
[2024-12-10 19:06] LABS: BASO % 0.5 % (0.0-1.0); EOS # 0.2 10^3/uL (0.0-0.5); EOS % 2.2 % (0.0-3.0); HEMATOCRIT 42.3 % (36.0-47.0); HEMOGLOBIN 13.8 g/dl (12.0-15.5); LYMPH # 2.5 10^3/uL (1.5-5.0); LYMPH % 34.1 % (24.0-44.0); MEAN CORPUSCULAR HEMOGLOBIN 29.6 pg (27.0-33.0); MEAN CORPUSCULAR HGB CONC 32.6 g/dl (32.0-36.5); MEAN CORPUSCULAR VOLUME 90.6 fl (80.0-96.0); MONO # 0.6 10^3/uL (0.0-0.8); NEUTROPHILS % 54.9 % (36.0-66.0); PLATELET COUNT, AUTOMATED 447 10^3/uL (150-450); RED BLOOD COUNT 4.67 10^6/uL (4.00-5.40); WHITE BLOOD COUNT 7.3 10^3/uL (4.0-10.0)
[2024-12-10 19:08] LABS: ALBUMIN 3.7 G/DL (3.2-5.2); ALKALINE PHOSPHATASE 109 U/L (35-104); ALT/SGPT 24 U/L (7.0-40); AST/SGOT 18 U/L (<34); BILIRUBIN,TOTAL 0.5 MG/DL (0.3-1.2); BLOOD UREA NITROGEN 9 MG/DL (9-23); CALCIUM LEVEL 9.5 MG/DL (8.5-10.1); CARBON DIOXIDE LEVEL 22 MMOL/L (20-31); CHLORIDE LEVEL 103 MMOL/L (98-107); CHOLESTEROL LEVEL 275 MG/DL (<200); CHOLESTEROL RISK RATIO 4.69 (<5); CREATININE FOR GFR 0.82 MG/DL (0.55-1.30); GLOMERULAR FILTRATION RATE 85.5 (>51); GLUCOSE, FASTING 115 MG/DL (60-100); HDL CHOLESTEROL 58.6 MG/DL (>40); LDL CHOLESTEROL 181.8 MG/DL (<100); NON-HDL-C 216.4 MG/DL; POTASSIUM SERUM 4.2 MMOL/L (3.5-5.1); SODIUM LEVEL 138 MMOL/L (136-145); THYROID STIMULATING HORMONE 4.355 uIU/ML (0.55-4.78); TOTAL PROTEIN 7.3 G/DL (5.7-8.2); TRIGLYCERIDES LEVEL 173 MG/DL (<150)
[2024-12-10 19:10] LABS: FREE T4 1.03 NG/DL (0.89-1.76)
[2024-12-10 21:49] LABS: HEMOGLOBIN A1c 5.7 % (4.0-6.0)
== END ==
LOC: M LAB REF 18:01
PROVIDERS: ATTEND Nurse Practitioner Family
DX: E66.9 Obesity, unspecified (principal); E03.9 Hypothyroidism, unspecified; R53.83 Other fatigue; Z11.9 Encounter for screening for infectious and parasitic diseases, unspecified

== ENCOUNTER → 2024-12-23 | Outpatient (CLI) | payer OTHER | LOC: M SLEEP HO 10:40 | PROVIDERS: ATTEND Nurse Practitioner Family | DX: R53.83 Other fatigue (principal) ==

== ENCOUNTER → 2025-05-11 | Outpatient (CLI) | payer OTHER ==
[~2025-05-11] MED LIST changes: -CAPT125TA PO; +CAPT1TAB16 PO
[2025-05-11 14:14] LABS: CALCIUM LEVEL 9.3 MG/DL (8.5-10.1); CARBON DIOXIDE LEVEL 30.0 MMOL/L (20-31); CHLORIDE LEVEL 101.0 MMOL/L (98-107); CREATININE FOR GFR 0.84 MG/DL (0.55-1.30); GLOMERULAR FILTRATION RATE 83.0 (>51); POTASSIUM SERUM 4.3 MMOL/L (3.5-5.1); SODIUM LEVEL 138.0 MMOL/L (136-145)
== END ==
LOC: M RAD 10:18
PROVIDERS: ATTEND Physician Assistant
DX: I73.9 Peripheral vascular disease, unspecified (principal); I10 Essential (primary) hypertension

== ENCOUNTER → 2025-05-25 | Outpatient (REF) | payer OTHER ==
[2025-05-27 16:14] LABS: HPV APTIMA Not Detected (Not Detected)
== END ==
LOC: M LAB REF 14:37
PROVIDERS: ATTEND Nurse Practitioner Family
DX: Z12.4 Encounter for screening for malignant neoplasm of cervix (principal)

== ENCOUNTER → 2025-05-31 | Outpatient (CLI) | payer OTHER | LOC: M SLEEP 20:00 | PROVIDERS: ATTEND Physician Assistant | DX: G47.33 Obstructive sleep apnea (adult) (pediatric) (principal) ==

== ENCOUNTER → 2025-06-04 | Outpatient (REF) | payer OTHER ==
[2025-06-04 15:01] LABS: CHOLESTEROL LEVEL 177.0 MG/DL (<200); CHOLESTEROL RISK RATIO 3.32 (<5); LDL CHOLESTEROL 94.4 MG/DL (<100); NON-HDL-C 123.8 MG/DL; TRIGLYCERIDES LEVEL 147.0 MG/DL (<150)
== END ==
LOC: M LAB REF 14:12
PROVIDERS: ATTEND Nurse Practitioner Family
DX: E03.9 Hypothyroidism, unspecified (principal); E78.2 Mixed hyperlipidemia

== ENCOUNTER → 2025-06-29 | Outpatient (CLI) | payer OTHER | LOC: M CARPUL 12:54 | PROVIDERS: ATTEND Physician Assistant | DX: R06.02 Shortness of breath (principal); R94.31 Abnormal electrocardiogram [ECG] [EKG] ==

== ENCOUNTER → 2025-07-20 | Outpatient (REF) | payer OTHER ==
[2025-07-20 17:27] LABS: C REACTIVE PROTEIN QUANTITATIV 1.30 MG/DL (<1.0); CALCIUM LEVEL 9.2 MG/DL (8.5-10.1); CARBON DIOXIDE LEVEL 27 MMOL/L (20-31); CHLORIDE LEVEL 103 MMOL/L (98-107); CK-MB VALUE MASS 1.2 NG/ML (<3.6); CPK CREATINE PHOSPHOKINASE 155 U/L (34-145); CREATININE FOR GFR 0.76 MG/DL (0.55-1.30); GLOMERULAR FILTRATION RATE > 90.0 (>51); MB/CK RELATIVE INDEX 0.77 (< OR =4); POTASSIUM SERUM 4.2 MMOL/L (3.5-5.1); SODIUM LEVEL 139 MMOL/L (136-145)
== END ==
LOC: M LAB REF 16:24
PROVIDERS: ATTEND Nurse Practitioner Family
DX: M25.50 Pain in unspecified joint (principal)

== ENCOUNTER → 2025-07-30 | Outpatient (CLI) | payer OTHER | LOC: M RAD 14:52 | PROVIDERS: ATTEND Physician Assistant | DX: Q27.8 Other specified congenital malformations of peripheral vascular system (principal) ==